=== PATIENT | female | born 1960 | race Caucasian/White ===

== ENCOUNTER 2017-11-16 11:34 | Inpatient (IN) | payer OTHER ==
[2017-11-16 12:46] LABS: OCCULT BLOOD STOOL NEGATIVE (NEGATIVE)
[2017-11-16] MEDS: PIPER-TAZO 3.375 GM IV (PMX) 100 ML IVPB (12:50)
[2017-11-16] MEDS: SOD CHLORIDE 0.9% 1,000 ML IV ×3 (12:50→23:15)
[2017-11-16 12:57] LABS: ADD MAN DIFF? NO
[2017-11-16 13:18] LABS: INR 1.02; PROTIME 13.5 Sec (11.9-14.9); PT RATIO 1.1
[2017-11-16 13:24] LABS: ALANINE AMINOTRANSFERASE 30 IU/L (13-69); ALBUMIN 4.4 g/dl (3.3-4.9); ALKALINE PHOSPHATASE 231 IU/L (42-121); ANION GAP 22 (8-16); ASPARTATE AMINO TRANSFERASE 32 IU/L (15-46); BILIRUBIN,INDIRECT 0.1 mg/dl (0-1.1); BILIRUBIN,TOTAL 0.1 mg/dl (0.2-1.3); BLOOD UREA NITROGEN 42 mg/dl (7-20); CALCIUM 9.9 mg/dl (8.4-10.2); CARBON DIOXIDE 25 mmol/L (21-31); CHLORIDE 100 mmol/L (97-110); CREATININE 1.17 mg/dl (0.44-1.00); GLUCOSE 244 mg/dl (70-220); LIPASE 498 U/L (23-300); POTASSIUM 4.6 mmol/L (3.5-5.1); SODIUM 142 mmol/L (135-144)
[2017-11-16 13:27] LABS: LACTIC ACID 2.4 mmol/L (0.5-2.0)
[2017-11-16 13:31] LABS: BASOPHILS % 0.4 % (0.0-2.0); EOSINOPHILS # 0.2 10^3/ul (0.0-0.5); EOSINOPHILS % 2.2 % (0.0-7.0); HEMATOCRIT 31.4 % (37.0-47.0); HEMOGLOBIN 9.5 g/dl (12.0-16.0); LYMPHOCYTES % 14.1 % (15.0-51.0); MEAN CORPUSCULAR HGB CONC 30.3 g/dl (32.0-37.0); MEAN PLATELET VOLUME 10.6 fl (7.4-10.4); MONOCYTE # 0.5 10^3/ul (0.3-0.9); MONOCYTES % 6.2 % (0.0-11.0); NEUTROPHIL # 5.5 10^3/ul (1.6-7.5); NEUTROPHILS % 76.4 % (39.0-77.0); PLATELET COUNT 266 10^3/UL (140-415); RED BLOOD COUNT 3.65 10^6/ul (4.20-5.40); RED CELL DISTRIBUTION WIDTH 18.3 % (11.5-14.5)
[2017-11-16 13:31] LABS: WHITE BLOOD COUNT 7.2 10^3/ul (4.8-10.8)
[2017-11-16 13:36] LABS: ALBUMIN/GLOBULIN RATIO 0.65; TOTAL PROTEIN 11.1 g/dl (6.1-8.1)
[2017-11-16 13:38] LABS: TROPONIN-I < 0.012 ng/ml (0.00-0.12)
[2017-11-16 13:42] LABS: ADD UMIC YES; UR ASCORBIC ACID 40 mg/dL (NEGATIVE); UR BACTERIA FEW /HPF (NONE SEEN); UR BILIRUBIN (Dip) NEGATIVE (NEGATIVE); UR BLOOD (Dip) 3+ mg/dL (NEGATIVE); UR CALCIUM OXALATE CRYSTAL MANY /HPF (NONE SEEN); UR CLARITY TURBID (CLEAR); UR COLOR RED (YELLOW); UR GLUCOSE (Dip) 1+ mg/dL (NEGATIVE); UR KETONES (Dip) NEGATIVE (NEGATIVE); UR LEUKOCYTE ESTERASE (Dip) 3+ Leu/ul (NEGATIVE); UR MUCUS FEW /HPF (NONE SEEN); UR NITRITE (Dip) NEGATIVE (NEGATIVE); UR NONSQUAMOUS EPITHELIAL CELL 2 /HPF (NONE SEEN); UR RBC > 182 /HPF (0-5); UR SPECIFIC GRAVITY (Dip) 1.014 (1.003-1.030); UR TOTAL PROTEIN (Dip) 2+ mg/dl (NEGATIVE); UR UROBILINOGEN (Dip) NEGATIVE (NEGATIVE); UR WBC > 182 /HPF (0-5)
[2017-11-16] MEDS ORDERED: VANCOMYCIN 1 GM (PMX) 250 ML IVPB (14:00)
[2017-11-16 15:58] LABS: LACTIC ACID 1.7 mmol/L (0.5-2.0)
[2017-11-16 18:22] LABS: LACTIC ACID 1.9 mmol/L (0.5-2.0)
[2017-11-16] MEDS ORDERED: GLUCOSE GEL 15 GRAM TUBE PO ×2 (23:00)
[2017-11-16] MEDS ORDERED: HYDROCODONE/APAP (5/325) TAB GTB (23:00)
[2017-11-16] MEDS ORDERED: DIPHENHYDRAMINE 25 MG CAP GTB (23:00)
[2017-11-16] MEDS ORDERED: MAGNESIUM HYDROXIDE 30ML CUP GTB (23:00)
[2017-11-16] MEDS ORDERED: BISACODYL 10 MG SUPP PR (23:00)
[2017-11-16] MEDS ORDERED: GLUCAGON 1 MG INJ IM (23:00)
[2017-11-16] MEDS ORDERED: DEXTROSE 50% 50 ML SYRINGE IV (23:00)
[2017-11-16] MEDS ORDERED: GLUCOSE GEL 15 GRAM TUBE BUCCAL (23:00)
[2017-11-17] MEDS ORDERED: ALBUTEROL/IPRATROPIUM (NEB) 3 ML AMP HHN
[2017-11-17] MEDS: INSULIN ASPART [NOVOLOG] 3 ML PEN SC ×6 (00:56→21:00)
[2017-11-17] MEDS: ALBUTEROL HFA 8 GM INHALER INH ×4 (02:37→19:05)
[2017-11-17] MEDS: IPRATROPIUM (HFA) 12.9 GM INHALER INH ×4 (02:38→19:05)
[2017-11-17] MEDS: SOD CHLORIDE 0.9% 1,000 ML IV ×4 (05:27→16:42)
[2017-11-17 06:01] LABS: ADD MAN DIFF? NO
[2017-11-17 06:03] LABS: WHITE BLOOD COUNT 5.8 10^3/ul (4.8-10.8)
[2017-11-17 06:03] LABS: BASOPHILS % 0.3 % (0.0-2.0); EOSINOPHILS # 0.2 10^3/ul (0.0-0.5); EOSINOPHILS % 2.8 % (0.0-7.0); HEMATOCRIT 27.2 % (37.0-47.0); HEMOGLOBIN 8.3 g/dl (12.0-16.0); LYMPHOCYTES % 16.8 % (15.0-51.0); MEAN CORPUSCULAR HEMOGLOBIN 26.2 pg (29.0-33.0); MEAN CORPUSCULAR HGB CONC 30.5 g/dl (32.0-37.0); MEAN CORPUSCULAR VOLUME 85.8 fl (82.0-101.0); MEAN PLATELET VOLUME 10.3 fl (7.4-10.4); MONOCYTE # 0.4 10^3/ul (0.3-0.9); MONOCYTES % 6.8 % (0.0-11.0); NEUTROPHIL # 4.2 10^3/ul (1.6-7.5); NEUTROPHILS % 72.8 % (39.0-77.0); PLATELET COUNT 209 10^3/UL (140-415); RED BLOOD COUNT 3.17 10^6/ul (4.20-5.40); RED CELL DISTRIBUTION WIDTH 18.6 % (11.5-14.5)
[2017-11-17 06:22] LABS: ANION GAP 17 (8-16); BLOOD UREA NITROGEN 27 mg/dl (7-20); CALCIUM 8.7 mg/dl (8.4-10.2); CARBON DIOXIDE 22 mmol/L (21-31); CHLORIDE 113 mmol/L (97-110); CREATININE 1.02 mg/dl (0.44-1.00); GLUCOSE 203 mg/dl (70-220); POTASSIUM 3.8 mmol/L (3.5-5.1); SODIUM 148 mmol/L (135-144)
[2017-11-17] MEDS: SUCRALFATE (100 MG/ML) 10ML CUP GTB ×3 (09:56→20:48)
[2017-11-17] MEDS: BACLOFEN 10 MG TAB GTB ×3 (09:57→20:53)
[2017-11-17] MEDS: ZINC SULFATE 220 MG CAP GTB (09:57)
[2017-11-17] MEDS: ACETAMINOPHEN 325 MG TAB GTB ×2 (09:57→21:04)
[2017-11-17] MEDS: MULTIVITAMINS THERAPEUTIC TAB PO (09:57)
[2017-11-17] MEDS: LANSOPRAZOLE 30 MG CAP GTB ×2 (09:57→20:51)
[2017-11-17] MEDS: LINAGLIPTIN 5 MG TABLET GTB (09:57)
[2017-11-17] MEDS: ASCORBIC ACID 500 MG TAB GTB ×2 (09:58→20:50)
[2017-11-17] MEDS: MEROPENEM 1 GM/50ML(PMX) 50 ML IVPB ×2 (09:58→20:53)
[2017-11-17] MEDS: MAGNESIUM OXIDE 400 MG TAB GTB (09:58)
[2017-11-17] MEDS: SENNA TAB GTB ×2 (09:58→20:49)
[2017-11-17] MEDS: INSULIN DETEMIR [LEVEMIR] 3ML CART SC ×2 (10:43→20:59)
[2017-11-17] MEDS: METOCLOPRAMIDE 10 MG TAB GTB ×2 (11:14→21:11)
[2017-11-17] MEDS: DOCUSATE SODIUM 100 MG CAP PO ×2 (11:14→21:10)
[2017-11-18] MEDS: INSULIN ASPART [NOVOLOG] 3 ML PEN SC ×6 (00:34→20:23)
[2017-11-18] MEDS: IPRATROPIUM (HFA) 12.9 GM INHALER INH ×4 (01:56→20:32)
[2017-11-18] MEDS: ALBUTEROL HFA 8 GM INHALER INH ×4 (01:56→20:32)
[2017-11-18] MEDS: SOD CHLORIDE 0.9% 1,000 ML IV ×3 (03:05→23:30)
[2017-11-18 05:51] LABS: ADD MAN DIFF? NO
[2017-11-18 05:58] LABS: WHITE BLOOD COUNT 5.1 10^3/ul (4.8-10.8)
[2017-11-18 05:58] LABS: BASOPHILS % 0.4 % (0.0-2.0); EOSINOPHILS # 0.2 10^3/ul (0.0-0.5); EOSINOPHILS % 3.1 % (0.0-7.0); HEMATOCRIT 27.2 % (37.0-47.0); LYMPHOCYTES # 0.9 10^3/ul (0.8-2.9); LYMPHOCYTES % 16.9 % (15.0-51.0); MEAN CORPUSCULAR HEMOGLOBIN 26.1 pg (29.0-33.0); MEAN CORPUSCULAR HGB CONC 29.4 g/dl (32.0-37.0); MEAN CORPUSCULAR VOLUME 88.6 fl (82.0-101.0); MONOCYTE # 0.4 10^3/ul (0.3-0.9); NEUTROPHIL # 3.6 10^3/ul (1.6-7.5); NEUTROPHILS % 70.8 % (39.0-77.0); PLATELET COUNT 183 10^3/UL (140-415); RED BLOOD COUNT 3.07 10^6/ul (4.20-5.40); RED CELL DISTRIBUTION WIDTH 18.6 % (11.5-14.5)
[2017-11-18 06:37] LABS: ANION GAP 15 (8-16); BLOOD UREA NITROGEN 15 mg/dl (7-20); CALCIUM 8.5 mg/dl (8.4-10.2); CARBON DIOXIDE 21 mmol/L (21-31); CHLORIDE 116 mmol/L (97-110); GLUCOSE 93 mg/dl (70-220); POTASSIUM 3.6 mmol/L (3.5-5.1); SODIUM 148 mmol/L (135-144)
[2017-11-18] MEDS: MULTIVITAMINS THERAPEUTIC TAB PO (08:42)
[2017-11-18] MEDS: BACLOFEN 10 MG TAB GTB ×3 (08:42→20:22)
[2017-11-18] MEDS: MAGNESIUM OXIDE 400 MG TAB GTB (08:42)
[2017-11-18] MEDS: LANSOPRAZOLE 30 MG CAP GTB ×2 (08:42→20:21)
[2017-11-18] MEDS: METOCLOPRAMIDE 10 MG TAB GTB ×2 (08:42→20:22)
[2017-11-18] MEDS: ASCORBIC ACID 500 MG TAB GTB ×2 (08:42→20:22)
[2017-11-18] MEDS: LINAGLIPTIN 5 MG TABLET GTB (08:42)
[2017-11-18] MEDS: SENNA TAB GTB ×2 (08:42→20:22)
[2017-11-18] MEDS: DOCUSATE SODIUM 100 MG CAP PO ×2 (08:42→20:22)
[2017-11-18] MEDS: SUCRALFATE (100 MG/ML) 10ML CUP GTB ×3 (08:42→20:22)
[2017-11-18] MEDS: ZINC SULFATE 220 MG CAP GTB (08:42)
[2017-11-18] MEDS: MEROPENEM 1 GM/50ML(PMX) 50 ML IVPB ×2 (08:43→20:20)
[2017-11-18] MEDS: EPOETIN 10000 UNITS/ML VIAL (ONCOLOGY) SC (09:00)
[2017-11-18] MEDS: INSULIN DETEMIR [LEVEMIR] 3ML CART SC ×2 (09:46→20:31)
[2017-11-18] MEDS: EPOETIN 2000 UNITS/ML INJ (NON ESRD/NON ONCOLOGY) SC (18:00)
[2017-11-18] MEDS: EPOETIN 3000 UNITS/ML (NON ESRD/NON ONCOLOGY) SC (18:01)
[2017-11-19] MEDS: INSULIN ASPART [NOVOLOG] 3 ML PEN SC ×6 (01:00→21:00)
[2017-11-19] MEDS: ALBUTEROL HFA 8 GM INHALER INH ×4 (01:40→20:45)
[2017-11-19] MEDS: IPRATROPIUM (HFA) 12.9 GM INHALER INH ×4 (01:40→20:45)
[2017-11-19 05:39] LABS: ADD MAN DIFF? NO
[2017-11-19 05:57] LABS: WHITE BLOOD COUNT 5.4 10^3/ul (4.8-10.8)
[2017-11-19 05:57] LABS: BASOPHILS % 0.2 % (0.0-2.0); EOSINOPHILS # 0.2 10^3/ul (0.0-0.5); EOSINOPHILS % 3.3 % (0.0-7.0); HEMATOCRIT 29.8 % (37.0-47.0); HEMOGLOBIN 8.8 g/dl (12.0-16.0); LYMPHOCYTES # 0.8 10^3/ul (0.8-2.9); LYMPHOCYTES % 14.4 % (15.0-51.0); MEAN CORPUSCULAR HGB CONC 29.5 g/dl (32.0-37.0); MEAN CORPUSCULAR VOLUME 87.9 fl (82.0-101.0); MEAN PLATELET VOLUME 10.5 fl (7.4-10.4); MONOCYTE # 0.4 10^3/ul (0.3-0.9); MONOCYTES % 6.5 % (0.0-11.0); NEUTROPHILS % 74.9 % (39.0-77.0); PLATELET COUNT 189 10^3/UL (140-415); RED BLOOD COUNT 3.39 10^6/ul (4.20-5.40); RED CELL DISTRIBUTION WIDTH 18.3 % (11.5-14.5)
[2017-11-19 06:37] LABS: ANION GAP 15 (8-16); BLOOD UREA NITROGEN 12 mg/dl (7-20); CALCIUM 8.2 mg/dl (8.4-10.2); CARBON DIOXIDE 20 mmol/L (21-31); CHLORIDE 116 mmol/L (97-110); CREATININE 0.78 mg/dl (0.44-1.00); GLUCOSE 99 mg/dl (70-220); POTASSIUM 3.4 mmol/L (3.5-5.1); SODIUM 148 mmol/L (135-144)
[2017-11-19] MEDS: SENNA TAB GTB ×2 (08:29→21:33)
[2017-11-19] MEDS: METOCLOPRAMIDE 10 MG TAB GTB ×2 (08:30→21:33)
[2017-11-19] MEDS: ASCORBIC ACID 500 MG TAB GTB ×2 (08:30→21:33)
[2017-11-19] MEDS: LINAGLIPTIN 5 MG TABLET GTB (08:30)
[2017-11-19] MEDS: MEROPENEM 1 GM/50ML(PMX) 50 ML IVPB ×2 (08:30→21:40)
[2017-11-19] MEDS: MULTIVITAMINS THERAPEUTIC TAB PO (08:30)
[2017-11-19] MEDS: MAGNESIUM OXIDE 400 MG TAB GTB (08:30)
[2017-11-19] MEDS: DOCUSATE SODIUM 100 MG CAP PO ×2 (08:30→21:33)
[2017-11-19] MEDS: BACLOFEN 10 MG TAB GTB ×3 (08:30→21:33)
[2017-11-19] MEDS: LANSOPRAZOLE 30 MG CAP GTB ×2 (08:30→21:33)
[2017-11-19] MEDS: INSULIN DETEMIR [LEVEMIR] 3ML CART SC ×2 (08:32→21:47)
[2017-11-19] MEDS: ZINC SULFATE 220 MG CAP GTB (08:37)
[2017-11-19] MEDS: SUCRALFATE (100 MG/ML) 10ML CUP GTB ×3 (08:37→21:33)
[2017-11-19] MEDS: SOD CHLORIDE 0.9% 1,000 ML IV ×2 (08:38→21:32)
[2017-11-20] MEDS: INSULIN ASPART [NOVOLOG] 3 ML PEN SC ×6 (01:00→21:00)
[2017-11-20] MEDS: IPRATROPIUM (HFA) 12.9 GM INHALER INH ×4 (01:31→19:45)
[2017-11-20] MEDS: ALBUTEROL HFA 8 GM INHALER INH ×4 (01:31→19:45)
[2017-11-20] MEDS: SOD CHLORIDE 0.9% 1,000 ML IV ×2 (05:35→16:57)
[2017-11-20 08:46] LABS: ADD MAN DIFF? NO
[2017-11-20 08:48] LABS: BASOPHILS % 0.4 % (0.0-2.0); EOSINOPHILS # 0.2 10^3/ul (0.0-0.5); EOSINOPHILS % 3.2 % (0.0-7.0); HEMATOCRIT 28.5 % (37.0-47.0); HEMOGLOBIN 8.6 g/dl (12.0-16.0); LYMPHOCYTES # 0.9 10^3/ul (0.8-2.9); LYMPHOCYTES % 17.2 % (15.0-51.0); MEAN CORPUSCULAR HEMOGLOBIN 26.1 pg (29.0-33.0); MEAN CORPUSCULAR HGB CONC 30.2 g/dl (32.0-37.0); MEAN CORPUSCULAR VOLUME 86.6 fl (82.0-101.0); MEAN PLATELET VOLUME 10.1 fl (7.4-10.4); MONOCYTE # 0.3 10^3/ul (0.3-0.9); MONOCYTES % 6.5 % (0.0-11.0); NEUTROPHIL # 3.5 10^3/ul (1.6-7.5); NEUTROPHILS % 71.7 % (39.0-77.0); PLATELET COUNT 177 10^3/UL (140-415); RED BLOOD COUNT 3.29 10^6/ul (4.20-5.40); RED CELL DISTRIBUTION WIDTH 18.1 % (11.5-14.5)
[2017-11-20 08:48] LABS: WHITE BLOOD COUNT 4.9 10^3/ul (4.8-10.8)
[2017-11-20] MEDS: SUCRALFATE (100 MG/ML) 10ML CUP GTB ×3 (08:59→22:01)
[2017-11-20] MEDS: SENNA TAB GTB ×2 (08:59→22:02)
[2017-11-20] MEDS: MAGNESIUM OXIDE 400 MG TAB GTB (09:00)
[2017-11-20] MEDS: MULTIVITAMINS THERAPEUTIC TAB PO (09:00)
[2017-11-20] MEDS: ZINC SULFATE 220 MG CAP GTB (09:00)
[2017-11-20] MEDS: DOCUSATE SODIUM 100 MG CAP PO ×2 (09:00→22:02)
[2017-11-20] MEDS: LANSOPRAZOLE 30 MG CAP GTB ×2 (09:00→22:01)
[2017-11-20] MEDS: ASCORBIC ACID 500 MG TAB GTB ×2 (09:00→22:01)
[2017-11-20] MEDS: METOCLOPRAMIDE 10 MG TAB GTB ×2 (09:00→22:01)
[2017-11-20] MEDS: LINAGLIPTIN 5 MG TABLET GTB (09:00)
[2017-11-20] MEDS: BACLOFEN 10 MG TAB GTB ×3 (09:04→22:02)
[2017-11-20] MEDS: MEROPENEM 1 GM/50ML(PMX) 50 ML IVPB ×2 (09:04→22:13)
[2017-11-20] MEDS: INSULIN DETEMIR [LEVEMIR] 3ML CART SC ×2 (09:06→22:14)
[2017-11-20 09:07] LABS: ANION GAP 14 (8-16); BLOOD UREA NITROGEN 14 mg/dl (7-20); CALCIUM 8.3 mg/dl (8.4-10.2); CARBON DIOXIDE 22 mmol/L (21-31); CHLORIDE 114 mmol/L (97-110); GLUCOSE 105 mg/dl (70-220); POTASSIUM 3.5 mmol/L (3.5-5.1); SODIUM 146 mmol/L (135-144)
[2017-11-20] MEDS: MUPIROCIN 2% 22 GM OINT TOP (22:02)
[2017-11-21] MEDS: SOD CHLORIDE 0.9% 1,000 ML IV ×2 (00:54→11:00)
[2017-11-21] MEDS: INSULIN ASPART [NOVOLOG] 3 ML PEN SC ×6 (00:56→20:35)
[2017-11-21] MEDS: DEXTROSE 50% 50 ML SYRINGE IV (00:59)
[2017-11-21] MEDS: ALBUTEROL HFA 8 GM INHALER INH ×4 (01:38→20:14)
[2017-11-21] MEDS: IPRATROPIUM (HFA) 12.9 GM INHALER INH ×4 (01:38→20:14)
[2017-11-21 05:42] LABS: ADD MAN DIFF? NO
[2017-11-21 06:11] LABS: WHITE BLOOD COUNT 4.8 10^3/ul (4.8-10.8)
[2017-11-21 06:11] LABS: BASOPHILS % 0.4 % (0.0-2.0); EOSINOPHILS # 0.2 10^3/ul (0.0-0.5); EOSINOPHILS % 3.9 % (0.0-7.0); HEMATOCRIT 28.8 % (37.0-47.0); HEMOGLOBIN 8.6 g/dl (12.0-16.0); LYMPHOCYTES % 20.5 % (15.0-51.0); MEAN CORPUSCULAR HEMOGLOBIN 25.9 pg (29.0-33.0); MEAN CORPUSCULAR HGB CONC 29.9 g/dl (32.0-37.0); MEAN CORPUSCULAR VOLUME 86.7 fl (82.0-101.0); MEAN PLATELET VOLUME 10.3 fl (7.4-10.4); MONOCYTE # 0.3 10^3/ul (0.3-0.9); MONOCYTES % 6.8 % (0.0-11.0); NEUTROPHIL # 3.2 10^3/ul (1.6-7.5); NEUTROPHILS % 66.7 % (39.0-77.0); PLATELET COUNT 178 10^3/UL (140-415); RED BLOOD COUNT 3.32 10^6/ul (4.20-5.40); RED CELL DISTRIBUTION WIDTH 18.1 % (11.5-14.5)
[2017-11-21 06:33] LABS: ANION GAP 15 (8-16); BLOOD UREA NITROGEN 15 mg/dl (7-20); CALCIUM 8.3 mg/dl (8.4-10.2); CARBON DIOXIDE 21 mmol/L (21-31); CHLORIDE 114 mmol/L (97-110); CREATININE 0.63 mg/dl (0.44-1.00); GLUCOSE 69 mg/dl (70-220); POTASSIUM 3.6 mmol/L (3.5-5.1); SODIUM 146 mmol/L (135-144)
[2017-11-21] MEDS: INSULIN DETEMIR [LEVEMIR] 3ML CART SC ×2 (08:29→20:46)
[2017-11-21] MEDS: MEROPENEM 1 GM/50ML(PMX) 50 ML IVPB ×2 (08:56→20:35)
[2017-11-21] MEDS: LANSOPRAZOLE 30 MG CAP GTB ×2 (08:56→20:35)
[2017-11-21] MEDS: SENNA TAB GTB ×2 (08:56→21:01)
[2017-11-21] MEDS: DOCUSATE SODIUM 100 MG CAP PO ×2 (08:56→20:34)
[2017-11-21] MEDS: METOCLOPRAMIDE 10 MG TAB GTB ×2 (08:56→21:01)
[2017-11-21] MEDS: ASCORBIC ACID 500 MG TAB GTB ×2 (08:56→20:34)
[2017-11-21] MEDS: SUCRALFATE (100 MG/ML) 10ML CUP GTB ×3 (08:56→21:01)
[2017-11-21] MEDS: BACLOFEN 10 MG TAB GTB ×3 (08:56→20:35)
[2017-11-21] MEDS: MULTIVITAMINS THERAPEUTIC TAB PO (08:56)
[2017-11-21] MEDS: ZINC SULFATE 220 MG CAP GTB (08:56)
[2017-11-21] MEDS: MAGNESIUM OXIDE 400 MG TAB GTB (08:57)
[2017-11-21] MEDS: MUPIROCIN 2% 22 GM OINT TOP ×2 (08:57→20:35)
[2017-11-21] MEDS: LINAGLIPTIN 5 MG TABLET GTB (09:00)
[2017-11-21] MEDS: EPOETIN 3000 UNITS/ML (NON ESRD/NON ONCOLOGY) SC (17:56)
[2017-11-21] MEDS: EPOETIN 2000 UNITS/ML INJ (NON ESRD/NON ONCOLOGY) SC (17:57)
[2017-11-22] MEDS: INSULIN ASPART [NOVOLOG] 3 ML PEN SC ×5 (01:00→17:00)
[2017-11-22] MEDS: ALBUTEROL HFA 8 GM INHALER INH ×3 (01:14→14:37)
[2017-11-22] MEDS: IPRATROPIUM (HFA) 12.9 GM INHALER INH ×3 (01:14→14:38)
[2017-11-22 06:24] LABS: ADD MAN DIFF? NO
[2017-11-22 06:34] LABS: WHITE BLOOD COUNT 5.4 10^3/ul (4.8-10.8)
[2017-11-22 06:34] LABS: BASOPHILS % 0.4 % (0.0-2.0); EOSINOPHILS # 0.2 10^3/ul (0.0-0.5); EOSINOPHILS % 3.5 % (0.0-7.0); HEMATOCRIT 26.4 % (37.0-47.0); LYMPHOCYTES % 17.7 % (15.0-51.0); MEAN CORPUSCULAR HEMOGLOBIN 26.4 pg (29.0-33.0); MEAN CORPUSCULAR HGB CONC 30.3 g/dl (32.0-37.0); MEAN CORPUSCULAR VOLUME 87.1 fl (82.0-101.0); MEAN PLATELET VOLUME 10.8 fl (7.4-10.4); MONOCYTE # 0.3 10^3/ul (0.3-0.9); MONOCYTES % 5.2 % (0.0-11.0); NEUTROPHIL # 3.9 10^3/ul (1.6-7.5); NEUTROPHILS % 72.3 % (39.0-77.0); PLATELET COUNT 174 10^3/UL (140-415); RED BLOOD COUNT 3.03 10^6/ul (4.20-5.40); RED CELL DISTRIBUTION WIDTH 18.6 % (11.5-14.5)
[2017-11-22 06:56] LABS: ANION GAP 15 (8-16); BLOOD UREA NITROGEN 17 mg/dl (7-20); CALCIUM 8.7 mg/dl (8.4-10.2); CARBON DIOXIDE 22 mmol/L (21-31); CHLORIDE 113 mmol/L (97-110); CREATININE 0.72 mg/dl (0.44-1.00); GLUCOSE 117 mg/dl (70-220); POTASSIUM 3.7 mmol/L (3.5-5.1); SODIUM 146 mmol/L (135-144)
[2017-11-22] MEDS: INSULIN DETEMIR [LEVEMIR] 3ML CART SC (08:53)
[2017-11-22] MEDS: ZINC SULFATE 220 MG CAP GTB (08:54)
[2017-11-22] MEDS: MULTIVITAMINS THERAPEUTIC TAB PO (08:54)
[2017-11-22] MEDS: ASCORBIC ACID 500 MG TAB GTB (08:54)
[2017-11-22] MEDS: SENNA TAB GTB (08:54)
[2017-11-22] MEDS: DOCUSATE SODIUM 100 MG CAP PO (08:54)
[2017-11-22] MEDS: METOCLOPRAMIDE 10 MG TAB GTB (08:54)
[2017-11-22] MEDS: MEROPENEM 1 GM/50ML(PMX) 50 ML IVPB (08:54)
[2017-11-22] MEDS: BACLOFEN 10 MG TAB GTB ×2 (08:54→13:27)
[2017-11-22] MEDS: LANSOPRAZOLE 30 MG CAP GTB (08:54)
[2017-11-22] MEDS: MAGNESIUM OXIDE 400 MG TAB GTB (08:54)
[2017-11-22] MEDS: SUCRALFATE (100 MG/ML) 10ML CUP GTB ×2 (08:54→13:27)
[2017-11-22] MEDS: MUPIROCIN 2% 22 GM OINT TOP (08:55)
[2017-11-22] MEDS: SOD CHLORIDE 0.9% 1,000 ML IV (11:41)
== END 2017-11-22 19:10 | DRG 870 ==
LOC: ICU 14:20 → E/R 11:34
PROVIDERS: Internal Medicine
PROC: 5A1955Z Respiratory Ventilation, Greater than 96 Consecutive Hours (ICD-10-PCS; principal; 2017-11-16)
DX: A41.9 Sepsis, unspecified organism (principal); J96.21 Acute and chronic respiratory failure with hypoxia; R65.21 Severe sepsis with septic shock; G82.50 Quadriplegia, unspecified; L89.154 Pressure ulcer of sacral region, stage 4; N17.9 Acute kidney failure, unspecified; Z99.11 Dependence on respirator [ventilator] status; L89.323 Pressure ulcer of left buttock, stage 3; E87.0 Hyperosmolality and hypernatremia; L89.313 Pressure ulcer of right buttock, stage 3; J96.22 Acute and chronic respiratory failure with hypercapnia; R40.3 Persistent vegetative state; N30.01 Acute cystitis with hematuria; E87.2 Acidosis; G35 Multiple sclerosis; Z93.0 Tracheostomy status; Z93.1 Gastrostomy status; R13.10 Dysphagia, unspecified; E11.9 Type 2 diabetes mellitus without complications; N20.0 Calculus of kidney; R59.0 Localized enlarged lymph nodes; M51.37 Other intervertebral disc degeneration, lumbosacral region; Z66 Do not resuscitate; B96.4 Proteus (mirabilis) (morganii) as the cause of diseases classified elsewhere; Z79.4 Long term (current) use of insulin
CPT/HCPCS: 36415; 71045; 74176; 80048; 80053; 81001; 82270; 82962; 83605; 83690; 84484; 85025; 85610; 87040; 87075; 87081; 87086; 89220; 93005; 94002; 94003; 94640; 96372; 96374; 96376; 99291-25; J0885